=== PATIENT | female | born 1990 | race Two or more races ===

== ENCOUNTER 2017-09-19 23:03 | Emergency (ER) | payer SELFPAY ==
[~2017-09-19] VITALS: Ht 154.9 cm; Wt 43.1 kg
[2017-09-19 23:06] VITALS: BP 122/85
== END 2017-09-20 00:25 | disposition home or self-care (01) ==
LOC: ER 23:05
DX: F41.9 Anxiety disorder, unspecified (principal)
CPT/HCPCS: 99284; A4606; Z7610